=== PATIENT | female | born 1960 | race Caucasian/White ===

== ENCOUNTER → 2022-02-04 10:49 | Outpatient (CLI) | payer OTHER, SELFPAY | PROVIDERS: PCP Internal Medicine; Referring Provider Internal Medicine; Visit Provider Internal Medicine | DX: Z13.820 Encounter for screening for osteoporosis (principal); M85.851 Other specified disorders of bone density and structure, right thigh; M85.852 Other specified disorders of bone density and structure, left thigh; Z78.0 Asymptomatic menopausal state | CPT/HCPCS: 77080 ==

== ENCOUNTER 2024-05-16 12:04 | Emergency (ER) | payer OTHER, SELFPAY ==
[2024-05-16] VITALS (16 sets, daily range): BP systolic 109–136; BP diastolic 61–73; PULSE 82–120; RESP 18–28; TEMP 36.8–39.8; O2SAT 93–96; BMI 37.9
--- NOTE | 2024-05-16 12:31 | EKG_ITS ---
[address] [address] Test Date: 2024-05-16 Pat Name: Mallory Estrada Department: Room: Gender: Female Director Of Collections And Archives: CLAY : 1960 Requested By: Order Number: [id number] Reading MD: Dario Choi Measurements Intervals [place] Rate: 113 P: 13 LA: 148 QRS: -51 QRSD: 78 T: 39 QT: 358 QTc: 491 Interpretive Statements Sinus tachycardia Pulmonary disease pattern Left anterior fascicular block Electronically Signed On 05-16-2024 19:04:02 PST by Dario Choi
--- NOTE | 2024-05-16 12:35 | DI.CT.S_ITS ---
PROCEDURE: CT CHEST ABD PEL WO CON INDICATIONS: Sepsis TECHNIQUE: After the administration of oral contrast, 5 mm thick sections acquired from the lung apices to the symphysis pubis. 5 mm thick coronal and sagittal reformats acquired, with additional 7 mm coronal MIP reformats through the lungs. For radiation dose reduction, the following was used: automated exposure control, adjustment of mA and/or kV according to patient size. COMPARISON: None. FINDINGS: Image quality: Diagnostic. CHEST: Lower Neck: No enlarged lymph nodes. Thyroid: No thyroid nodules which require sonographic follow up, per consensus guidelines. Axillae: No enlarged lymph nodes. Chest Wall: Unremarkable. Bones: Unremarkable. Lungs and Pleura: No pneumothorax or pleural effusions. 6-7 millimeter solid pulmonary nodule with peripheral cystic change located in the right lower lobe (series 4, image 228). Heart: Heart size is normal. No pericardial effusion. Thoracic Vessels: The aorta and pulmonary arteries demonstrate normal size. Mediastinum and Linh: No enlarged lymph nodes. Esophagus: No wall thickening. No hiatal hernia. ABDOMEN: Liver: No solid mass. Gallbladder: No radiopaque gallstones or wall thickening. Biliary ducts: No biliary dilation. Pancreas: No ductal dilation. Spleen: Size is within normal limits. Adrenal Glands: No adrenal nodules. Kidneys and Ureters: No hydronephrosis. No solid mass. No complex renal cystic lesion which requires follow up. Stomach and Bowel: Normal colonic caliber, without significant wall thickening. No significant diverticular disease. Linear decompression of the redundant sigmoid colon in the right lower quadrant (series 5, image 49). Peritoneum: No abnormal intraperitoneal fluid. No free air. Ventral Wall: No hernia. Abdominal Nodes: No retroperitoneal or mesenteric adenopathy by size criteria. Vessels: Aorta and inferior vena cava are normal in size. PELVIS: Pelvic Organs: Unremarkable. Bladder: Unremarkable. Pelvic Nodes: No enlarged lymph nodes. Miscellaneous: No inguinal hernias are seen. Bones: No aggressive osseous abnormality. Compression deformity of L3, without endplate retropulsion. Degenerative disc disease of the lumbar spine. IMPRESSION: No findings to explain the patient's sepsis. Linear decompression of the redundant sigmoid colon in the right lower quadrant. Findings likely represent a nonobstructing internal hernia. Consider outpatient surgical referral. 6-7 millimeter solid nodule in the left lower lobe with a peripheral cystic component. Recommend six-month follow-up with chest CT. Dictated by: Walt Qureshi M.D. on 05/16/2024 at 14:13 Approved by: Walt Qureshi M.D. on 05/16/2024 at 14:19
[2024-05-16 12:42] LABS: Appearance Urine UA CLEAR; Bilirubin Urine UA 1+ (NEGATIVE); Color Urine UA YELLOW; Glucose Urine UA NEGATIVE (Negative); Ketones Urine UA TRACE (NEGATIVE); Leukocyte Esterase Urine UA NEGATIVE (NEGATIVE); Nitrite Urine UA POSITIVE (Negative); Occult Blood Urine UA 1+ (Negative); Protein Urine UA 2+ (Negative); Specific Gravity Urine UA 1.025 (1.000-1.035)
--- NOTE | 2024-05-16 12:42 | ED.SKABFB ---
HPI - Skin/Abscess/Foreign Bdy General Chief complaint: Fever Stated complaint: body rash, fever, tachycardia, LBP Time Seen by Provider: 05/16/24 12:34 Source: patient Mode of arrival: Wheelchair Limitations: no limitations History of Present Illness HPI narrative: patient here for rash fever body aches. Started in the past couple of days. Patient seen last week at [facility] for UTI, 1st 1 she has ever had. Placed on Bactrim. Last dosed yesterday. Now here for body wide hives and itching and body aches and fever. No nausea or vomiting. No headache. No cough cold or congestion. No diarrhea. No trouble breathing no oral swelling Related Data Previous Rx's Medication Instructions Recorded cephalexin 500 mg capsule 500 mg PO BID #6 caps 05/16/24 Allergies Allergy/AdvReac Type Severity Reaction Status Date / Time Sulfa (Sulfonamide Allergy Severe Rash Verified 05/16/24 12:24 Antibiotics) Review of Systems Review of Systems Narrative: GENERAL: Negative chills, fatigue, malaise, positivefever, sweats. HEENT: Negative sinus pain, ear pain, sore throat RESPIRATORY: Negative dyspnea, cough CARDIOVASCULAR: Negative chest pain, palpitations GASTROINTESTINAL: Negative nausea, vomiting, abdominal pain : Negative dysuria, frequency, hematuria MUSCULOSKELETAL: Negative muscle or bony pain SKIN: pauserash, skin lesions NEUROLOGIC: Negative weakness, numbness ROS Unobtainable: All systems reviewed & are unremarkable except as noted in HPI and below Patient History Social History Smoking Status: Former smoker Smoking Status: Former smoker Substance Use Type: does not use Exam Narrative Exam Narrative: GENERAL: in no distress, not toxic not dyspneic HEAD: Normocephalic. EYES: Pupils equal round ENT: Mucous membranes moist. no lesions or oral swelling or blistering of the mucosa NECK: Trachea midline. CARDIOVASCULAR: Regular rate and rhythm , tachycardia RESPIRATORY: Clear to auscultation. Breath sounds equal bilaterally. No wheezes, rales, or rhonchi. GASTROINTESTINAL: Abdomen soft, non-tender EXTREMITIES: No gross deformities. BACK: No flank tenderness. NEURO: AOx4. SKIN: Warm and dry, diffuse hives on face arms chest abdomen neck legs PSYCH: Not anxious, is cooperative Initial Vital Signs Initial Vital Signs: Vital Signs Temperature 103.7 F H 05/16/24 12:18 Pulse Rate 120 H 05/16/24 12:18 Respiratory Rate 18 05/16/24 12:18 Blood Pressure 136/73 05/16/24 12:18 Pulse Oximetry 96 05/16/24 12:18 Oxygen Delivery Method Room Air 05/16/24 12:18 Course Orders Ordered: Discontinued Medications Acetaminophen (Acetaminophen 325 Mg Tablet) 975 mg PO NOW ONE Stop: 05/16/24 12:39 Last Admin: 05/16/24 13:08 Dose: 975 mg Documented By: DEBORAH Diphenhydramine HCl (Diphenhydramine 50 Mg/Ml Vial) 25 mg IV NOW ONE Stop: 05/16/24 12:36 Last Admin: 05/16/24 13:22 Dose: 25 mg Documented By: DEBORAH Diphenhydramine HCl (Diphenhydramine 50 Mg/Ml Vial) 25 mg IV NOW ONE Stop: 05/16/24 17:43 Last Admin: 05/16/24 18:07 Dose: 25 mg Documented By: PADMINI Famotidine (Famotidine 20 Mg/2 Ml Vial) 20 mg IV NOW STONE Last Admin: 05/16/24 13:20 Dose: 20 mg Documented By: DEBORAH Sodium Chloride (Normal Saline 0.9%) 1,000 mls @ 1,000 mls/hr IV BOLUS ONE Stop: 05/16/24 13:34 Last Infusion: 05/16/24 14:50 Dose: Infused Documented By: Admin: 05/16/24 13:35 Dose: 1,000 mls/hr Documented By: DEBORAH Ceftriaxone Sodium 2,000 mg/ (Sodium Chloride) 100 mls @ 200 mls/hr IV NOW ONE Stop: 05/16/24 16:13 Last Infusion: 05/16/24 17:36 Dose: Infused Documented By: Admin: 05/16/24 16:29 Dose: 200 mls/hr Documented By: DEBORAH Sodium Chloride (Normal Saline 0.9%) 1,000 mls @ 1,000 mls/hr IV BOLUS ONE Stop: 05/16/24 17:33 Last Infusion: 05/16/24 18:00 Dose: Infused Documented By: Admin: 05/16/24 16:47 Dose: 1,000 mls/hr Documented By: DEBORAH Methylprednisolone (Methylprednisolone 125 Mg/2 Ml Vial) 125 mg IV NOW ONE Stop: 05/16/24 12:36 Last Admin: 05/16/24 13:26 Dose: 125 mg Documented By: DEBORAH Vital Signs Vital signs: Vital Signs - 8 hr 05/16/24 12:18 05/16/24 13:30 05/16/24 14:00 Temperature 103.7 F H Pulse Rate 120 H 96 H Respiratory Rate 18 28 H Blood Pressure 136/73 121/67 Pulse Oximetry 96 93 Oxygen Delivery Method Room Air 05/16/24 14:54 05/16/24 16:34 Temperature 101.1 F H 98.2 F Pulse Rate Respiratory Rate Blood Pressure Pulse Oximetry Oxygen Delivery Method MDM - Skin/Abscess/Foreign Bdy Lab Data 05/16/24 13:00 05/16/24 17:55 Labs: Lab Results 05/16/24 05/16/24 05/16/24 Range/Units 12:23 12:30 13:00 WBC 6.3 (4.5-11.0) X10^3/uL RBC 4.93 (4.0-5.2) X10^6/uL Hgb 15.4 (12.0-16.0) g/dL Hct 45.5 (36-46) % MCV 92.3 (80-100) fL MCH 31.2 (26-34) PG MCHC 33.8 (30-36) % RDW 13.6 (11.6-14.8) % Plt Count 153 (150-400) X10^3/uL Neut % (Auto) 88.1 H (50-75) % Lymph % (Auto) 6.0 L (25-40) % [place] % (Auto) 2.4 L (3-14) % Eos % (Auto) 3.3 (2-4) % Baso % (Auto) 0.2 (0-2) % Neut # (Auto) 5500 (2994-4685) /uL Lymph # (Auto) 400 L (3622-5918) /uL [place] # (Auto) 200 (0-900) /uL Eos # (Auto) 200 (0-450) /uL Baso # (Auto) 0 (0-100) /uL Sodium 131 L (137-145) mmol/L Potassium 4.6 (3.4-5.1) mmol/L Chloride 98 (98-107) mmol/L Carbon Dioxide 23 (22-32) mmol/L BUN 16 (7-17) mg/dL Creatinine 1.47 H (0.52-1.04) mg/dL Estimated GFR 39 L (>60) mL/min BUN/Creatinine Ratio 10.9 (6-22) Glucose 122 H (80-110) mg/dL Calcium 8.7 (8.4-10.2) mg/dL Total Bilirubin 1.1 (0.2-1.3) mg/dL AST 41 H (14-36) IU/L ALT 26 (<35) IU/L Alkaline Phosphatase 37 L (38-126) U/L Total Protein 7.6 (6.3-8.2) g/dL Albumin 4.5 (3.5-5.0) g/dL Globulin 3.1 (1.7-4.1) g/dL Albumin/Globulin Ratio 1.5 (1.0-2.8) Procalcitonin 0.345 (<0.5) ng/mL Urine Color Yellow Urine Appearance Clear Urine pH 5.5 (4.5-8.0) Ur Specific [place] 1.025 (1.000-1.035) Urine Protein 2+ H (Negative) Urine Glucose (UA) Negative (Negative) g/dL Urine Ketones Trace H (NEGATIVE) Urine Occult Blood 1+ H (Negative) Urine Nitrate Positive H (Negative) Urine Bilirubin 1+ H (NEGATIVE) Ur Bilirubin Confirm Negative (Negative) Urine Urobilinogen 1.0 (0.2) E.U./dL Ur Leukocyte Esterase Negative (NEGATIVE) Urine RBC 1-5/hpf (0-5/HPF) Urine WBC None seen (0-5/HPF) Ur Squamous Epith Cells 1-5 /hpf (0-5/HPF) Urine Bacteria Few (2-10) H (None) Ur Culture Indicated? Specimen cultured Vol Urine Centrifuged 10ml (spun) Chlamy pneumoniae PCR Not detected (Not Detect) Adenovirus (PCR) Not detected (Not Detect) B. pertussis DNA (PCR) Not detected (Not Detect) B.parapertussis DNA PCR Not detected (Not Detecte) Coronavirus OC43 (PCR) Not detected (Not Detect) Coronavirus HKU1 (PCR) Not detected (Not Detect) Coronavirus 229E (PCR) Not detected (Not Detect) SARS-CoV-2 (PCR) Not detected (Not Detecte) Coronavirus NL63 (PCR) Not detected (Not Detect) Human Metapneumovir PCR Not detected (Not Detect) Influenza Type A (PCR) Not detected (Not Detect) Influenza Type B (PCR) Not detected (Not Detect) M. pneumoniae (PCR) Not detected (Not Detect) Parainfluenza 1 (PCR) Not detected (Not Detect) Parainfluenza 2 (PCR) Not detected (Not Detect) Parainfluenza 3 (PCR) Not detected (Not Detect) Parainfluenza 4 (PCR) Not detected (Not Detect) RSV (PCR) Not detected (Not Detect) Entero/Rhino (PCR) Not detected (Not Detect) 05/16/24 Range/Units 17:55 WBC (4.5-11.0) X10^3/uL RBC (4.0-5.2) X10^6/uL Hgb (12.0-16.0) g/dL Hct (36-46) % MCV (80-100) fL MCH (26-34) PG MCHC (30-36) % RDW (11.6-14.8) % Plt Count (150-400) X10^3/uL Neut % (Auto) (50-75) % Lymph % (Auto) (25-40) % [place] % (Auto) (3-14) % Eos % (Auto) (2-4) % Baso % (Auto) (0-2) % Neut # (Auto) (8397-3167) /uL Lymph # (Auto) (3029-3457) /uL [place] # (Auto) (0-900) /uL Eos # (Auto) (0-450) /uL Baso # (Auto) (0-100) /uL Sodium 130 L (137-145) mmol/L Potassium 3.9 (3.4-5.1) mmol/L Chloride 104 (98-107) mmol/L Carbon Dioxide 19 L (22-32) mmol/L BUN 13 (7-17) mg/dL Creatinine 1.09 H (0.52-1.04) mg/dL Estimated GFR 56 L (>60) mL/min BUN/Creatinine Ratio 11.9 (6-22) Glucose 143 H (80-110) mg/dL Calcium 7.7 L (8.4-10.2) mg/dL Total Bilirubin (0.2-1.3) mg/dL AST (14-36) IU/L ALT (<35) IU/L Alkaline Phosphatase (38-126) U/L Total Protein (6.3-8.2) g/dL Albumin (3.5-5.0) g/dL Globulin (1.7-4.1) g/dL Albumin/Globulin Ratio (1.0-2.8) Procalcitonin (<0.5) ng/mL Urine Color Urine Appearance Urine pH (4.5-8.0) Ur Specific [place] (1.000-1.035) Urine Protein (Negative) Urine Glucose (UA) (Negative) g/dL Urine Ketones (NEGATIVE) Urine Occult Blood (Negative) Urine Nitrate (Negative) Urine Bilirubin (NEGATIVE) Ur Bilirubin Confirm (Negative) Urine Urobilinogen (0.2) E.U./dL Ur Leukocyte Esterase (NEGATIVE) Urine RBC (0-5/HPF) Urine WBC (0-5/HPF) Ur Squamous Epith Cells (0-5/HPF) Urine Bacteria (None) Ur Culture Indicated? Vol Urine Centrifuged Chlamy pneumoniae PCR (Not Detect) Adenovirus (PCR) (Not Detect) B. pertussis DNA (PCR) (Not Detect) B.parapertussis DNA PCR (Not Detecte) Coronavirus OC43 (PCR) (Not Detect) Coronavirus HKU1 (PCR) (Not Detect) Coronavirus 229E (PCR) (Not Detect) SARS-CoV-2 (PCR) (Not Detecte) Coronavirus NL63 (PCR) (Not Detect) Human Metapneumovir PCR (Not Detect) Influenza Type A (PCR) (Not Detect) Influenza Type B (PCR) (Not Detect) M. pneumoniae (PCR) (Not Detect) Parainfluenza 1 (PCR) (Not Detect) Parainfluenza 2 (PCR) (Not Detect) Parainfluenza 3 (PCR) (Not Detect) Parainfluenza 4 (PCR) (Not Detect) RSV (PCR) (Not Detect) Entero/Rhino (PCR) (Not Detect) Imaging Data CT chest abdomen and pelvis: Radiologist's Impression: [address] [address] [address] Scan Report Signed Patient: Mallory Estrada MR#: [id number] : 1960 Acct:[id number] Age/Sex: 63 / F Date of Service: 05/16/24 Loc: ED Accession Number: [id number] Procedure: CT chest abd pel wo con Ordering Provider: Ricardo Card MD PROCEDURE: CT CHEST ABD PEL WO CON INDICATIONS: Sepsis TECHNIQUE: After the administration of oral contrast, 5 mm thick sections acquired from the lung apices to the symphysis pubis. 5 mm thick coronal and sagittal reformats acquired, with additional 7 mm coronal MIP reformats through the lungs. For radiation dose reduction, the following was used: automated exposure control, adjustment of mA and/or kV according to patient size. COMPARISON: None. FINDINGS: Image quality: Diagnostic. CHEST: Lower Neck: No enlarged lymph nodes. Thyroid: No thyroid nodules which require sonographic follow up, per consensus guidelines. Axillae: No enlarged lymph nodes. Chest Wall: Unremarkable. Bones: Unremarkable. Lungs and Pleura: No pneumothorax or pleural effusions. 6-7 millimeter solid pulmonary nodule with peripheral cystic change located in the right lower lobe (series 4, image 228). Heart: Heart size is normal. No pericardial effusion. Thoracic Vessels: The aorta and pulmonary arteries demonstrate normal size. Mediastinum and Linh: No enlarged lymph nodes. Esophagus: No wall thickening. No hiatal hernia. ABDOMEN: Liver: No solid mass. Gallbladder: No radiopaque gallstones or wall thickening. Biliary ducts: No biliary dilation. Pancreas: No ductal dilation. Spleen: Size is within normal limits. Adrenal Glands: No adrenal nodules. Kidneys and Ureters: No hydronephrosis. No solid mass. No complex renal cystic lesion which requires follow up. Stomach and Bowel: Normal colonic caliber, without significant wall thickening. No significant diverticular disease. Linear decompression of the redundant sigmoid colon in the right lower quadrant (series 5, image 49). Peritoneum: No abnormal intraperitoneal fluid. No free air. Ventral Wall: No hernia. Abdominal Nodes: No retroperitoneal or mesenteric adenopathy by size criteria. Vessels: Aorta and inferior vena cava are normal in size. PELVIS: Pelvic Organs: Unremarkable. Bladder: Unremarkable. Pelvic Nodes: No enlarged lymph nodes. Miscellaneous: No inguinal hernias are seen. Bones: No aggressive osseous abnormality. Compression deformity of L3, without endplate retropulsion. Degenerative disc disease of the lumbar spine. IMPRESSION: No findings to explain the patient's sepsis. Linear decompression of the redundant sigmoid colon in the right lower quadrant. Findings likely represent a nonobstructing internal hernia. Consider outpatient surgical referral. 6-7 millimeter solid nodule in the left lower lobe with a peripheral cystic component. Recommend six-month follow-up with chest CT. Dictated by: Walt Qureshi M.D. on 05/16/2024 at 14:13 Approved by: Walt Qureshi M.D. on 05/16/2024 at 14:19 [facility] Narrative Medical decision making narrative: patient here for rash fever body aches. Started in the past couple of days. Patient seen last week at [facility] for UTI, 1st 1 she has ever had. Placed on Bactrim. Last dosed yesterday. Now here for body wide hives and itching and body aches and fever. No nausea or vomiting. No headache. No cough cold or congestion. No diarrhea. No trouble breathing no oral swelling After history and exam CBC CMP procalcitonin lactic acid blood culture EKG Benadryl Pepcid Solu-Medrol CT chest abdomen pelvis respiratory panel [facility] Medical records reviewed: no recent visit for this complaint Differential considered: Includes but not limited to sepsis drug reaction UTI [facility] Test results independently reviewed as above. Pertinent findings: WBC 6.3 hemoglobin 15.4 sodium 131 potassium 4.6 BUN 16 creatinine 1.47 GFR 39 urinalysis positive nitrate negative leukocyte esterase respiratory panel negative Independently reviewed EKG sinus tachycardia rate 113 Imaging studies independently reviewed: CT chest abdomen pelvis no acute finding. Recommend outpatient workup for lung and colon findings Consultations: None indicated at this time Treatments: Solu-Medrol Pepcid Benadryl Re-evaluations: 4:36 p.m.. Heart rate and temperature has improved. Patient feeling better. Reviewed with the likely drug allergy. Fevers can occur with drug allergies. However will treat different antibiotic for likely ongoing UTI as well. We will repeat renal function after 2 L normal saline. Discussion: appropriate for discharge home. Exam is reassuring. Fever likely due to drug allergy to sulfa/ Bactrim. Heart rate improved at time of discharge as well as temperature. Patient given 2 L of normal saline for renal results. Rocephin given for UTI. Keflex given for prescription. Return precautions reviewed. She desires discharge home. Renal function improved at time of discharge Diagnosis: drug allergy reaction, UTI Discharge Plan Departure Patient Disposition: Home Clinical Impression: Allergic drug rash due to sulfonamide, Acute UTI Instructions: DI for Urinary Tract Infection (UTI), DI for Adverse Drug Reaction -- Allergic Activity Restrictions/Additional Instructions: your fever and rash likely due to sulfa allergy. We have listed this as an allergy. We have restarted a different antibiotic for you. Please continue this for 3 days. Prescription has been sent to your pharmacy. Keep well hydrated. May continue Tylenol for any fever. May continue Benadryl for any itching. See family doctor this week for re-evaluation. The rash should improve in a week. Return if worse if any questions or concerns Prescriptions: New cephalexin 500 mg capsule 500 mg PO BID Qty: 6 0RF Referrals: Miscellaneous,Doctor, [Primary Care Provider] - Stand Alone Forms: Patient Portal/API/Survey
[2024-05-16 12:44] LABS: pH Urine UA 5.5 (4.5-8.0)
[2024-05-16 12:48] LABS: Bacteria Urine Few (2-10); RBC Urine 1-5/HPF (0-5/HPF); Squamous Epithelial Cell Urine 1-5 /HPF (0-5/HPF); Urine Volume 10mL (spun); WBC Urine None Seen (0-5/HPF)
[2024-05-16 12:50] LABS: Culture Indicated Urine Specimen Cultured; Ictotest Urine Negative (Negative)
[2024-05-16] MEDS: ACETAMINOPHEN 325 MG TABLET 975 MG PO (13:08)
[2024-05-16 13:18] LABS: Add Manual Diff / Slide Review NO; Basophils Absolute Auto 0 /uL (0-100); Basophils Percent Auto 0.2 % (0-2); Eosinophils Absolute Auto 200 /uL (0-450); Eosinophils Percent Auto 3.3 % (2-4); Hematocrit 45.5 % (36-46); Hemoglobin 15.4 g/dL (12.0-16.0); Lymphocytes Absolute Auto 400 /uL (1100-4500); Mean Corpuscular HGB Conc 33.8 % (30-36); Mean Corpuscular Hemoglobin 31.2 PG (26-34); Mean Corpuscular Volume 92.3 fL (80-100); Monocytes Absolute Auto 200 /uL (0-900); Monocytes Percent Auto 2.4 % (3-14); Neutrophils Absolute Auto 5500 /uL (1500-7000); Neutrophils Percent Auto 88.1 % (50-75); Platelet Count 153 X10^3/uL (150-400); Red Blood Cell Count 4.93 X10^6/uL (4.0-5.2); Red Cell Distribution Width 13.6 % (11.6-14.8); White Blood Cell Count 6.3 X10^3/uL (4.5-11.0)
[2024-05-16] MEDS: FAMOTIDINE 20 MG/2 ML VIAL IV (13:20)
[2024-05-16] MEDS: diphenhydrAMINE 50 MG/ML VIAL 25 MG IV ×2 (13:22→18:07)
[2024-05-16] MEDS: methylPREDNISolone 125 MG/2 ML VIAL IV (13:26)
[2024-05-16 13:29] LABS: Alanine Aminotransferase 26 IU/L (<35); Albumin 4.5 g/dL (3.5-5.0); Albumin Globulin Ratio 1.5 (1.0-2.8); Alkaline Phosphatase 37 U/L (38-126); Aspartate Aminotransferase 41 IU/L (14-36); BUN Creatinine Ratio 10.9 (6-22); Bilirubin Total 1.1 mg/dL (0.2-1.3); Blood Urea Nitrogen 16 mg/dL (7-17); Calcium 8.7 mg/dL (8.4-10.2); Carbon Dioxide 23 mmol/L (22-32); Chloride 98 mmol/L (98-107); Estimated Glomerular Filt Rate 39 mL/min (>60); Globulin 3.1 g/dL (1.7-4.1); Glucose 122 mg/dL (80-110); Potassium 4.6 mmol/L (3.4-5.1); Sodium 131 mmol/L (137-145); Total Protein 7.6 g/dL (6.3-8.2)
[2024-05-16 13:30] LABS: HEMOLYSIS 124 (0-50)
[2024-05-16] MEDS: SODIUM CHLORIDE 0.9% 1,000 ML 1000 ML IV ×2 (13:35→16:47)
[2024-05-16 13:46] LABS: Procalcitonin 0.345 ng/mL (<0.5)
--- NOTE | 2024-05-16 13:49 | PC.NURSE ---
Pt reports finishing course of antibiotics for UTI (bactrim). Pt states she developed a fever within the last 48 hours. Pt skin red from neck down. Pt denies allergy to bactrim in the past. Pt 89 on arrival here. No airway compromise noted.
[2024-05-16 14:17] LABS: Adenovirus Not Detected (Not Detect); B. parapertussis Not Detected (Not Detecte); Bordetella pertussis Not Detected (Not Detect); Chlamydophila pneumoniae Not Detected (Not Detect); Coronavirus 229E Not Detected (Not Detect); Coronavirus HKU1 Not Detected (Not Detect); Coronavirus NL 63 Not Detected (Not Detect); Coronavirus OC43 Not Detected (Not Detect); Human Metapneumovirus Not Detected (Not Detect); Human Rhinovirus/Enterovirus Not Detected (Not Detect); Influenza A Not Detected (Not Detect); Influenza B Not Detected (Not Detect); Mycoplasma pneumoniae Not Detected (Not Detect); Parainfluenza Virus 1 Not Detected (Not Detect); Parainfluenza Virus 2 Not Detected (Not Detect); Parainfluenza Virus 3 Not Detected (Not Detect); Parainfluenza Virus 4 Not Detected (Not Detect); Respiratory Syncytial Virus Not Detected (Not Detect); SARS- CoV-2 Not Detected (Not Detecte)
[2024-05-16] MEDS: cefTRIAXone 2,000 MG in SODIUM CHLORIDE 0.9% 100 ML 200 MG IV (16:29)
[2024-05-16 18:19] LABS: BUN Creatinine Ratio 11.9 (6-22); Blood Urea Nitrogen 13 mg/dL (7-17); Calcium 7.7 mg/dL (8.4-10.2); Carbon Dioxide 19 mmol/L (22-32); Chloride 104 mmol/L (98-107); Estimated Glomerular Filt Rate 56 mL/min (>60); Glucose 143 mg/dL (80-110); HEMOLYSIS 18 (0-50); Potassium 3.9 mmol/L (3.4-5.1); Sodium 130 mmol/L (137-145)
--- NOTE | 2024-05-16 18:36 | PC.NURSE ---
Pt rash still present on chest, back, arms, and back. Dr. Card states pt does not have SJS. Pt respirations regular and unlabored. No blisters noted. Pt skin remains hot and dry. GCS 15. No oral blisters, swelling, etc noted. Pt reports itchiness continues but is better with benadryl.
--- NOTE | 2024-05-16 18:38 | PC.NURSE ---
Pt passed PO challenge.
== END 2024-05-16 18:41 | disposition home or self-care (01) ==
PROVIDERS: Emergency Provider Emergency Medicine
DX: L27.0 Generalized skin eruption due to drugs and medicaments taken internally (principal); N39.0 Urinary tract infection, site not specified; R00.0 Tachycardia, unspecified; I44.4 Left anterior fascicular block
CPT/HCPCS: 36415; 71250; 74176; 80048; 80053; 81001; 84145; 85025; 87040; 87086; 87633; 93005; 99284; J0696; J1200; J2919

== ENCOUNTER → 2024-11-15 | Outpatient (CLI) | payer OTHER, SELFPAY ==
--- NOTE | 2024-11-15 11:25 | DI.CT.S_ITS ---
PROCEDURE: CT CHEST WO CON INDICATIONS: Pulmonary nodule TECHNIQUE: Noncontrast 5 mm thick sections acquired from the pulmonary apices to the posterior costophrenic angles. 1 mm lung window, 5 mm thick coronal and sagittal and 7 mm axial MIP reformats were then acquired. For radiation dose reduction, the following was used: automated exposure control, adjustment of mA and/or kV according to patient size. COMPARISON: None. FINDINGS: Image quality: Diagnostic. Lower Neck: No enlarged lymph nodes. Thyroid: Left thyroid calcification. Axillae: No enlarged lymph nodes. Chest Wall: Unremarkable. Bones: Unremarkable. Lungs and Pleura: No pneumothorax or pleural effusions. Stable 6-7 mm solid nodule in the right lower lobe (series 3, image 199). Additional solid pulmonary micro nodules are present in the right lower lobe (series 3, image 169). Heart: Heart size is normal. No pericardial effusion. Thoracic Vessels: The aorta and pulmonary arteries demonstrate normal size. Mediastinum and Linh: No enlarged lymph nodes. Esophagus: No wall thickening. Small hiatal hernia. Upper Abdomen: Visualized upper abdomen solid organs and bowel loops appear normal. IMPRESSION: Stable 6-7 mm solid pulmonary nodule. Consider follow-up in 12 months if at high risk for developing cancer, per Fleischner society guidelines. Dictated by: Walt Qureshi M.D. on 11/15/2024 at 18:41 Approved by: Walt Qureshi M.D. on 11/15/2024 at 18:42
== END ==
LOC: CT 11:23
PROVIDERS: PCP Family Medicine; Referring Provider Family Medicine; Visit Provider Family Medicine
DX: R91.1 Solitary pulmonary nodule (principal)
CPT/HCPCS: 71250